=== PATIENT | female | born 1985 | race Caucasian/White ===

== ENCOUNTER 2017-11-24 08:30 | Inpatient (IN) | payer OTHER, SELFPAY ==
[2017-09-22 14:39] VITALS: BMI 25.0
[2017-11-24 08:01] VITALS: BMI 26.8
--- NOTE | 2017-11-24 08:33 | PCM.HP.OB ---
History Date of Admission: 11/24/17 Gestational age: 40.1 History of this : @ 40.1 wks who presents in labor c/o contractions denies VB, lOF. Pt is dated by her first trimester ultrasound which differs by one week with LMP. pt has h/o VWD - will not be able to receive regional anesthesia per prior consultation with anesthesia. pt will receive Humate-P prior to delivery and DDAVP immediately after delivery. Pertinent Past Medical History: VWD, h/o alcohol abuse, h/o seizure in 2014 likely precipitated from ETOH consumption Allergies No Known Allergies Allergy (Verified 09/22/17 14:19) Folic Acid, vit B, Zonegran 100mg Smoking Status: Former smoker Alcohol: Sober Drug Use: none, marijuana - previous use Review of Systems Gastrointestinal: Reports: Abdominal Pain Physical Exam General: Alert, Oriented x3 Abdomen: Soft, Gravid Estimated gestational size: Appropriate for gestational size Presentation: Cephalic Cervix Dilation (cm): 3 Station: -2 Effacement (%): 90 Assessment/Plan @ 40.1 wks in labor- VWD 1) humate P within 2-6 hours of delivery, DDAVP immediately after delivery 2) O+, Rub imm, syph neg, hep B neg, HIV non reactive, GBS negative 3) Monitor FHR/TOCO 4) Anesthesia aware of patient 5) Nitrous for pain mgmt
[2017-11-24 09:30] LABS: Hematocrit 36.3 % (37-47); Hemoglobin 12.7 g/dl (12.0-15.0); Mean Corpuscular Volume 88.5 fL (81-99); Mean Platelet Vol. 11.1 fl (6.2-12.0); Platelet Count 205 K/mm3 (150-450); RBC Distribution Width CV 13.2 % (11.6-14.6); RBC Distribution Width SD 41.7 fl (35.1-43.9); Scan Indicated on CBC? Y/N NO; White Blood Count 13.3 K/mm3 (4.4-11.0)
[2017-11-24] MEDS: Lactated Ringers 1,000 ML 50 ML IV (09:36)
[2017-11-24] MEDS: Nalbuphine 10 MG/ML Ampul IV ×2 (10:45→13:33)
--- NOTE | 2017-11-24 12:21 | PCM.PN.OB ---
Subjective: Sitting up in bed, Nubain given for pain relief, coping well. at bedside. Objective: Cervix: 4cm/90%/-1, vertex. AROM for clear fluid. TOCO: every 2-4 minutes, moderate to strong palpation, lasting 60-90 seconds FHT: 125, moderate variability, accels, no decels, Category 1 - Physical Exam Weight: 161 lb 6.054 oz Body Mass Index (BMI) 26.8 Laboratory Tests Past 24 Hrs 11/24/17 11/24/17 09:15 09:15 WBC 13.3 H RBC 4.10 L Hgb 12.7 Hct 36.3 L MCV 88.5 MCH 31.0 MCHC 35.0 RDW 13.2 RDW Differential 41.7 Plt Count 205 MPV 11.1 Blood Type O POSITIVE Antibody Screen NEGATIVE Assessment/Plan A: Active Labor Category 1 FHT P: 1) Continue with expectant management 2) AROM 3) Nubain for pain management. Nitrous or shower if needed 4) notified of patient progress.
[2017-11-24] MEDS: Oxytocin 30 units/NS 500 ml 30 UNITS/500 ML IV.SOLN 334 UNITS IV (16:43)
[2017-11-24] MEDS: Desmopressin Acetate 4 MCG/ML Ampul 20 MCG IV (16:52)
--- NOTE | 2017-11-24 17:05 | PCM.OB.VAG ---
Vaginal Delivery Maternal Presentation: Active Labor Amniotic Membrane Rupture Type: Artificial Amniotic Fluid Description: Clear Final RENITA: 11/23/17 Final RENITA Source: US <20 weeks Gestational age: 40 Weeks and 1 Days Date of Procedure: 11/24/17 Pre-Operative Diagnosis: spontaneous labor, VWD Post-Operative Diagnosis: Live male infant Surgery/ Procedure Performed: Spontaneous Vaginal Delivery Type of Anesthesia: Local with 1% lidocaine - injected at perineum prior to delivery - 5cc Description of Procedure: of live male infant born without complication. Delayed cord clamping performed. Presentation: Vertex Placental Delivery Description: Spontaneous Placenta Disposition: [facility] Cord Vessel Description: 3 Vessels Nuchal Cord Compression: Without compression Cord Entanglement: None Estimated Blood Loss: 400 A gender: Male (1 minute): 8 (5 minute): 9 Episiotomy Description: None Laceration: Perineal Extension/lac - repaired with 2-0 vicryl and 3-0 rapide., 2nd degree Medications given after delivery: IV Pitocin, - - Humate P given prior to vaginal delviery. DDAVP 20mcg IV given immediately after delivery Complications: None
[2017-11-24] MEDS: Oxytocin 30 units/NS 500 ml 30 UNITS/500 ML IV.SOLN 167 UNITS IV (17:15)
[2017-11-24] MEDS: Methylergonovine 0.2 MG/ML Ampul IM (18:21)
[2017-11-24] MEDS: Lactated Ringers 1,000 ML 100 ML IV (18:44)
[2017-11-24 19:30] VITALS: BP 125/64; PULSE 83; RESP 16; TEMP 36.8; O2SAT 98
[2017-11-24] MEDS: Acetaminophen 500 MG Tablet 1000 MG PO (20:54)
[2017-11-25] VITALS: BP 106/57; PULSE 88; RESP 16; TEMP 36.7; O2SAT 98
[2017-11-25 03:09] VITALS: BP 104/63; PULSE 88; RESP 16; TEMP 36.6; O2SAT 99
--- NOTE | 2017-11-25 04:10 | NURSING ---
per pt, she missed the hat but states i peed a lot
[2017-11-25] MEDS: Acetaminophen 500 MG Tablet 1000 MG PO ×2 (07:59→18:25)
[2017-11-25 08:32] VITALS: BP 102/65; PULSE 87; RESP 14; TEMP 36.5; O2SAT 99
--- NOTE | 2017-11-25 09:11 | NURSING ---
double checked student's assessment of fundus/lochia/perineum and agree with pt's charting of assessment
[2017-11-25 12:15] VITALS: BP 100/65; PULSE 95; RESP 14; TEMP 36.5; O2SAT 98
--- NOTE | 2017-11-25 12:27 | PCM.PN.OB ---
Subjective: No complaints - Physical Exam General: Alert, Oriented x3 Abdomen: Soft, Non Tender, Non-Distended - ff mid & below umb Extremities: No Calf Tenderness Vital Signs Temp Pulse Resp BP Pulse Ox 97.7 F L 95 14 100/65 98 11/25/17 12:15 11/25/17 12:15 11/25/17 12:15 11/25/17 12:15 11/25/17 12:15 Oxygen Delivery Method Room Air Weight: 161 lb 6.054 oz Body Mass Index (BMI) 26.8 Intake and Output for Last 24 Hours 11/23/17 11/24/17 11/25/17 23:59 23:59 23:59 Intake Total 1650 / 1650 Output Total 300 / 300 250 / 250 Balance 1350 / 1350 -250 / -250 Assessment/Plan PPD#1 Routine care
--- NOTE | 2017-11-25 15:30 | CASEMGMT ---
Social Work Note Labor and Delivery Unit Social Work Assessment completed. Refer to documentation below for further details. Date of Referral: 11/25/2017 Time of Referral: 0830 Referred By: nursing staff, verbal referral Reason for Referral: Maternal history of substance abuse Date of Intervention: 11/25/2017 Time of Intervention: 1525 History obtained from: Medical record, mother of baby (MOB) Sheri Quan, and father of baby (FOB) Sacha Quan. Household composition: MOB and FOB live together in own home. MOB reports home situation is safe and adequate. Plan to take baby, Michael Vargas to this home. Patient's parent/guardian status: MOB and FOB reports to have been now for 9 years. Both formerly from the [facility]. Privately talked to MOB and MOB denies any form of abuse in relationship with FOB. Medical History: MBO is G1, P0 to 1 after delivering infant. MOB with care starting at 12 weeks. Infant born weighing 7 pounds 4 ounces with Apgars of 8 and 9 at 1 and 5 minutes of life. Educational Status: MOB and FOB both with 8th grade education, as is normal through the [employer]. MOB reports has been doing work to complete GED and has only the math part to work on before can take the test. No reported issues with reading, writing, or learning comprehension. Financial Status: FOB works as a general foreman and MOB works assisting with scheduling and paperwork. MOB and FOB reports to be doing fine financially. Infant Supplies: It is reported that family has crib, bottles, clothing, diapers, wipes, in place at home. MOB plans to breast feed , but has a few cans of formula if this would be needed in the future. Childcare/Caregiver(s): MOB plans to be the primary caregiver to infant. Transportation: Both parents drive, no reported issues. Programs/Agencies Involved: No agency involvement at this time. Behavioral Health Issues: MOB with history of depression and anxiety, history of medication for such but none in a few years. MOB denies any history of suicidal ideation or attempt. MOB reports while seeking some treatment in [place], MOB was told that may have some ADHD symptoms. MOB admits to history of alcohol abuse, reports this was for about a year and a half duration and that MOB has been sober from any substance since September 2016. MOB reports it was in September that MOB and FOB went to [place] for a visit, that MOB sought out some treatment of neurofeedback. MOB reports from this learned a lot about why used substances and also ways to calm her mind and cope in healthy ways rather and use substances. Note chart indicates MOB with a history of marijuana use around the same time of alcohol use. MOB with history of counseling at [facility] as well. MOB denies any other illicit drug use history. Family/Social Stressors: No reported or identified stressors at this time. MOB reports this baby was wanted and to feel a connection/vásquez with the baby at this time. Support Systems: MOB reports FOB is a strong support system, and that FOB will be at home to help MOB through the end of November. Both MOB and FOB reports to have large families and that both sides are supportive and willing to help out if MOB and FOB so desire. Depression/Shaken Baby/Safe Sleeping: MOB and FOB both listened to education about depression and risk for such. Educated to safe sleeping and shaken baby. Both able to give appropriate responses on the topic of shaken baby. ASSESSMENT: MOB and FOB both engaged in conversation, both polite and cooperative. During private conversation MOB more talkative regarding past issues with substances and things MOB has learned to cope and calm down MOBs brain. Both MOB and FOB reports to have needed supplies for baby, both handled baby during social work visit and both were appropriate. MOB seems to be bonding with baby, smiling at baby, talking to baby, caressing the baby. MOB remained calm when baby started to cry. MOB reports to know that can no longer have even one drink that does not keep alcohol around as there is no point in having something that may tempt MOB. MOB reports that does not miss the past lifestyle that included substance use. MOB reports that this baby is too important to even take a chance and use even once. MOB reports if feeling of depression or anxiety surface will be willing to talk to FOB and also will let the doctor know. At this point MOB does not feel the need to return to counseling or to start medication for depression or anxiety. PLAN: MOB and infant to home. Resources for [facility] given, as well as information on Help Me Grow, parent support groups, depression and online supports for such. No other services requested or indicated. -LEWIS Hernandes, LOCATION MAN
--- NOTE | 2017-11-25 16:01 | NURSING ---
In to see mother and check on feedings . Mother states feedings going well and has discussed tongue tie with search engine marketing specialist . I will visit mother tomorrow and see how feedings are going and plan for follow up visit.
[2017-11-25 17:00] VITALS: BP 103/65; PULSE 85; RESP 14; TEMP 36.6
[2017-11-25 20:14] VITALS: BP 107/65; PULSE 94; RESP 18; TEMP 36.7; O2SAT 98
[2017-11-26] MEDS: Senna/Docusate Sodium 1 Tablet PO (01:52)
[2017-11-26] MEDS: Acetaminophen 500 MG Tablet 1000 MG PO (01:54)
[2017-11-26 01:55] VITALS: BP 105/74; PULSE 78; RESP 16; TEMP 37.1; O2SAT 99
[2017-11-26 08:18] VITALS: BP 105/65; PULSE 84; RESP 18; TEMP 36.9; O2SAT 98
--- NOTE | 2017-11-26 08:51 | DCINST_ITS ---
Discharge Diet: No Restrictions Discharge Activity: Return to Normal Activity, May not drive while taking narcotic pain medications., May Shower May resume sexual activity in: 4-6 weeks Additional Activity Instructions:: Nothing in the vagina for 4-6 weeks. You may return to work/school in 6 weeks. Call your doctor if your incision/area has: Continuous Slow Oozing, Sudden Increased Bleeding, Increased Pain/ Swelling, Increased Redness, Foul Smelling Discharge Additional Instructions: If you experience any of the following, contact your healthcare provider. * Bleeding that soaks a pad every hour for 2 hours * Fever 100.4 or higher * Unrelieved incision or abdominal pain * Swelling, redness, discharge or bleeding from your incision or episiotomy site * Your incision begins to separate * Problems urinating (including inability to urinate or burning while urinating) . * Visual changes * Severe headache * Flu-like symptoms * Pain or redness in one of both of your breasts * Pain, warmth, tenderness or swelling in your legs, especially the calf area * Frequent nausea and vomiting * Symptoms of depression or anxiety If you experience any of the following, call 911 or go to the nearest Emergency Room. * Chest pain * Problems breathing * Seizure activity * Partial or complete paralysis of a body part, slurred speech, weakness or drooping of the face, or a sudden inability to walk or hold your balance Allergies/Adverse Reactions: Allergies No Known Allergies Allergy (Verified 09/22/17 14:19) Medications to take at Discharge Calcium Carb/Magnesium Hydrox [Rolaids Chewable Tablet] 2 each PO BID 09/22/17 [place]-3 Fatty Acids/Fish Oil [Fish Oil 1,000 mg Capsule] 2 each PO BID 09/22/17 Vits [Prenatabs FA] 3 tablet PO DAILY 09/22/17 Vitamin B Complex 1 each PO DAILY 09/22/17 Zonisamide [Zonegran] 100 mg PO QHS 09/22/17 When: Call to make an appointment with your doctor in 6 weeks. If you had elevated Blood Pressure or 4th degree laceration you will need to be seen in 2 weeks. Primary Care Physician: Care Physician,No Primary [Primary Care Provider] -
--- NOTE | 2017-11-26 08:51 | PCM.PN.BLA ---
Progress Note S: Patient sitting up in bed, doing skin to skin with baby at this time. Patient reports no issues, notes that her bleeding has subsided and decreased significantly. Patient reports desire to be discharged to home today. had identified tongue tie, patient reports minimal pain with latch but has resource list for providers that can do revision. O: VSS, Afebrile, H/H = WNL Nipples without cracks, blisters. No ecchymoses noted Abdomen NT x 4 quadrants, FF midline 2FB below umbilicus No edema in LE, +/4 reflexes in LE Scant rubra lochia, perineum well-approximated A: PPD #2 s/p , Hx of VwF - stable for discharge, Normal Course P: 1) Discharge to home pending discharge 2) Anticipatory teaching done 3) RTC at [facility] in 6 weeks PP Ginger Yost CNM
--- NOTE | 2017-11-26 08:56 | PN_ITS ---
Progress Note S: Patient sitting up in bed, doing skin to skin with baby at this time. Patient reports no issues, notes that her bleeding has subsided and decreased significantly. Patient reports desire to be discharged to home today. had identified tongue tie, patient reports minimal pain with latch but has resource list for providers that can do revision. O: VSS, Afebrile, H/H = WNL Nipples without cracks, blisters. No ecchymoses noted Abdomen NT x 4 quadrants, FF midline 2FB below umbilicus No edema in LE, +/4 reflexes in LE Scant rubra lochia, perineum well-approximated A: PPD #2 s/p , Hx of VwF - stable for discharge, Normal Course P: 1) Discharge to home pending discharge 2) Anticipatory teaching done 3) RTC at [facility] in 6 weeks PP Ginger Yost CNM
--- NOTE | 2017-11-26 13:16 | NURSING ---
discharged via wheel chair with in carseat, no distress noted [id number]
== END 2017-11-26 12:20 | disposition home or self-care (01) | DRG 775 ==
LOC: WPOUT 08:36
PROVIDERS: Admitting Provider Obstetrics & Gynecology; Visit Provider Obstetrics & Gynecology
DX: O99.12 Other diseases of the blood and blood-forming organs and certain disorders involving the immune mechanism complicating childbirth (principal); D68.0 Von Willebrand disease; Z3A.40 40 weeks gestation of pregnancy; Z37.0 Single live birth; Z87.891 Personal history of nicotine dependence; O70.1 Second degree perineal laceration during delivery
CPT/HCPCS: 59025; 59050; 85027; 86850; 86900; 99218; J7120; G0378; J2597; J7187

== ENCOUNTER 2017-12-01 10:09 | Outpatient (CLI) | payer OTHER, SELFPAY | END 2017-12-01 10:40 | disposition home or self-care (01) | LOC: WPOUT 10:17 → WP 10:18 | PROVIDERS: Visit Provider Pediatrics | DX: R63.3 Feeding difficulties (principal) | CPT/HCPCS: 96152 ==

== ENCOUNTER 2021-01-17 05:03 | Emergency (ER) | payer MEDICAID, SELFPAY ==
[2021-01-17 05:06] VITALS: BP 89/58; PULSE 88; RESP 16; TEMP 36.4; O2SAT 97; BMI 19.4
[2021-01-17 05:12] VITALS: BP 92/68
[2021-01-17] MEDS: 0.9% Normal Saline 1,000 ML 1000 ML IV (05:15)
[2021-01-17 05:28] LABS: Absolute Lymphocyte Count 3.21 X10^3/uL (0.83-4.51); Absolute Neutrophil Count 2.4 X10^3/uL (2.0-7.7); Basophil# 0.03 X10^3/uL; Basophil% 0.5 % (0-1); Eosinophil# 0.19 X10^3/uL; Eosinophils% 3.1 % (0-5); Hematocrit 32.7 % (37-47); Hemoglobin 10.7 g/dL (12.0-15.0); Lymphocyte # 3.21 X10^3/ul (4.0); Lymphocyte % 51.9 % (19-41); Mean Corp Hgb Conc 32.7 g/dL (32-36); Mean Corpuscular Hgb 28.6 pg (27.0-32.0); Mean Corpuscular Volume 87.4 fL (81-99); Mean Platelet Vol. 10.6 fl (6.2-12.0); Monocyte# 0.38 X10^3/uL; Monocyte% 6.1 % (0-10); NRBC Flagged by Analyzer 0 % (0-5); Neutrophil # 2.36 X10^3/uL (2.7-7.7); Neutrophil % 38.2 % (47-70); Platelet Count 250 K/mm3 (150-450); RBC Distribution Width SD 41.1 fl (35.1-43.9); Red Blood Count 3.74 M/mm3 (4.2-5.4); White Blood Count 6.2 K/mm3 (4.4-11.0)
[2021-01-17 05:35] LABS: Internal QC Validated? YES +Cl - CLEAR BKGD; Pregnancy, Serum, hCG Quali. NEGATIVE Negative
[2021-01-17 05:42] LABS: Anion Gap 6 (5-15); BUN 12 mg/dL (7-18); BUN/Creat Ratio 20.1 RATIO (10-20); Calcium,Total 8.4 mg/dL (8.5-10.1); Chloride 108 mmol/L (98-107); EST Glomerular Filtration Rate 123 mL/min (>60); Est Glom Filt Rate - Afr Amer 148 mL/min (>60); Estimated Creatinine Clearance 111.37 ml/min; Glucose 122 mg/dL (74-106); Potassium 3.6 mmol/L (3.5-5.1); Sodium Level 140 mmol/L (136-145)
--- NOTE | 2021-01-17 05:43 | ED.VISSUMM ---
- ER Visit Summary Date of Service: 01/17/21 Chief Complaint: Vaginal bleeding History of Present Illness: The patient is a 35 F [facility] She reports that she has vaginal bleeding that began 12 days ago. States that over the past 3 days she has been going through a pad every 2 hours. States that her last menstrual period prior to this was approximately 4 weeks ago. She is a G1, P1, states that she has never had anything like this before. She denies any abdominal pain. Review of systems: General: No fever, chills, cold sweats. Cardiovascular: No chest pain, palpitations. Respiratory: No cough, shortness of breath, dyspnea on exertion. Gastrointestinal: No abdominal pain, nausea, vomiting, diarrhea, melena, or hematochezia. Genitourinary: No dysuria, frequency, hematuria. Skin: No rash. Neuro: No headache, numbness, weakness. Physical Examination: Vitals: Stable. Afebrile. General: Well-nourished and well-developed. Head: Normocephalic atraumatic. Neck: Supple, no lymphadenopathy. No JVD. Nontender. Cardiovascular: Regular rate and rhythm. No murmurs. Respiratory: No respiratory distress. Clear to auscultation bilaterally. Abdominal: Soft, nontender, nondistended, normal bowel sounds. No guarding, rebound, or peritoneal signs. Pelvic: Refused. Back: Nontender. Extremities: Nontender, no edema. Skin: Normal color, no rash. Neurologic: Alert and oriented ?3. Cranial nerves II through XII are intact. Normal strength and sensation. Psych: Normal affect. Test Results: CBC shows an H&H of 10.7 and 32.7, segmented neutrophils of 38, lymphocytes 15.2. Chem-7 shows a chloride of 108, glucose 120, calcium 8.4. test is negative. Emergency Department Course and Treatment: Patient had an IV placed. She given liter normal saline. She is resting comfortably. Treatment Plan: Patient be discharged instructions to follow-up with Dr. Shi in 3 to 5 days if not improving. She is instructed return the emerge department if she is having to change a pad more than four times an hour for greater than 4 hours. Disposition: To home in improved and stable condition. Impression: One. Dysfunctional uterine bleeding. This note was generated with [employer] software. It may contain incorrect words, spelling, and punctuation that were not noted in review of the chart prior to signing ED Disposition - Plan for ED Patient: Instructions: ED Dysfunctional Uterine Bleeding Referrals: Tosin Goins MD [STAFF PHYSICIAN] - 3-5 Days if not improving
[2021-01-17 06:07] VITALS: BP 92/64; PULSE 76; RESP 18; O2SAT 99
== END 2021-01-17 06:08 | disposition home or self-care (01) ==
LOC: ED 05:33
PROVIDERS: Emergency Provider Emergency Medicine
DX: N93.8 Other specified abnormal uterine and vaginal bleeding (principal)
CPT/HCPCS: 80048; 84703; 85025; 96360; 99285; J7030; A4216